=== PATIENT | male | born 1940 | race Caucasian/White ===

== ENCOUNTER 2017-03-19 12:57 | Emergency (ER) | payer MEDICARE, OTHER ==
[2017-03-19 14:01] LABS: HEMOGLOBIN 12.3 gm/dl (14.0-17.5); RED BLOOD COUNT 3.94 M/UL (4.20-5.50); WHITE BLOOD COUNT 8.2 K/UL (4.5-11.0)
[2017-03-19 14:17] LABS: BUN/CREATININE RATIO 24 (0-10)
[2017-06-15] MEDS ORDERED: LIPITOR TAB 2020 MG PO (22:40)
[2017-06-15] MEDS ORDERED: OSMOLITE 1.21000 ML PO (22:40)
[2017-06-15] MEDS ORDERED: COREG 12.5MG12.5 MG PO (22:40)
[2017-06-15] MEDS ORDERED: ASPIR 8181 MG PO (22:41)
[2017-06-15] MEDS ORDERED: CELEXA20 MG PO (22:42)
[2017-06-15] MEDS ORDERED: CARDURA 2MG TAB2 MG PO (22:42)
[2017-06-15] MEDS ORDERED: QUETIAPINE FUMA25 MG PO (22:43)
[2017-06-15] MEDS ORDERED: LISINOPRIL40 MG PO (22:43)
[2017-06-20] MEDS ORDERED: MIRALAX PACK 171 PKT GT (16:00)
[2017-06-20] MEDS ORDERED: COLACE SOL100 MG/10 GT (16:01)
[2017-06-20] MEDS ORDERED: BACTRIM DS TAB1 EACH PO (16:02)
== END 2017-03-19 15:38 | disposition short-term general hospital (02) ==
LOC: ER1 12:57
PROVIDERS: Specialist/Technologist Athletic Trainer
DX: I63.9 Cerebral infarction, unspecified (principal); R60.0 Localized edema; E88.09 Other disorders of plasma-protein metabolism, not elsewhere classified; I25.10 Atherosclerotic heart disease of native coronary artery without angina pectoris; I10 Essential (primary) hypertension; J44.9 Chronic obstructive pulmonary disease, unspecified; Z79.82 Long term (current) use of aspirin; Z79.899 Other long term (current) drug therapy
CPT/HCPCS: 36415; 36600; 70450; 71010; 80053; 82140; 82550; 82553; 82803; 83605; 83880; 84484; 85025; 93005; 96374; 99285; J2930

== ENCOUNTER 2017-03-24 14:14 | Emergency (ER) | payer MEDICARE, OTHER ==
[2017-06-15] MEDS ORDERED: LIPITOR TAB 2020 MG PO (22:40)
[2017-06-15] MEDS ORDERED: OSMOLITE 1.21000 ML PO (22:40)
[2017-06-15] MEDS ORDERED: COREG 12.5MG12.5 MG PO (22:40)
[2017-06-15] MEDS ORDERED: ASPIR 8181 MG PO (22:41)
[2017-06-15] MEDS ORDERED: CELEXA20 MG PO (22:42)
[2017-06-15] MEDS ORDERED: CARDURA 2MG TAB2 MG PO (22:42)
[2017-06-15] MEDS ORDERED: QUETIAPINE FUMA25 MG PO (22:43)
[2017-06-15] MEDS ORDERED: LISINOPRIL40 MG PO (22:43)
[2017-06-20] MEDS ORDERED: MIRALAX PACK 171 PKT GT (16:00)
[2017-06-20] MEDS ORDERED: COLACE SOL100 MG/10 GT (16:01)
[2017-06-20] MEDS ORDERED: BACTRIM DS TAB1 EACH PO (16:02)
== END 2017-03-24 17:00 | disposition home or self-care (01) ==
LOC: ER1 14:14
DX: Z43.1 Encounter for attention to gastrostomy (principal); I25.10 Atherosclerotic heart disease of native coronary artery without angina pectoris; I10 Essential (primary) hypertension; J44.9 Chronic obstructive pulmonary disease, unspecified
CPT/HCPCS: 74000; 99284; Q9963

== ENCOUNTER 2017-03-26 12:06 | Emergency (ER) | payer MEDICARE ==
[2017-03-26 12:22] LABS: HEMOGLOBIN 12.5 gm/dl (14.0-17.5); RED BLOOD COUNT 4.01 M/UL (4.20-5.50); WHITE BLOOD COUNT 8.1 K/UL (4.5-11.0)
[2017-03-26 12:48] LABS: BUN/CREATININE RATIO 19 (0-10)
[2017-06-15] MEDS ORDERED: LIPITOR TAB 2020 MG PO (22:40)
[2017-06-15] MEDS ORDERED: OSMOLITE 1.21000 ML PO (22:40)
[2017-06-15] MEDS ORDERED: COREG 12.5MG12.5 MG PO (22:40)
[2017-06-15] MEDS ORDERED: ASPIR 8181 MG PO (22:41)
[2017-06-15] MEDS ORDERED: CARDURA 2MG TAB2 MG PO (22:42)
[2017-06-15] MEDS ORDERED: CELEXA20 MG PO (22:42)
[2017-06-15] MEDS ORDERED: QUETIAPINE FUMA25 MG PO (22:43)
[2017-06-15] MEDS ORDERED: LISINOPRIL40 MG PO (22:43)
[2017-06-20] MEDS ORDERED: MIRALAX PACK 171 PKT GT (16:00)
[2017-06-20] MEDS ORDERED: COLACE SOL100 MG/10 GT (16:01)
[2017-06-20] MEDS ORDERED: BACTRIM DS TAB1 EACH PO (16:02)
== END 2017-03-26 16:55 ==
LOC: ER1 12:06
PROVIDERS: Emergency Medicine
DX: R51 Headache (principal); E78.5 Hyperlipidemia, unspecified; J44.9 Chronic obstructive pulmonary disease, unspecified; J45.909 Unspecified asthma, uncomplicated; I10 Essential (primary) hypertension; H02.402 Unspecified ptosis of left eyelid; G81.94 Hemiplegia, unspecified affecting left nondominant side; Z86.73 Personal history of transient ischemic attack (TIA), and cerebral infarction without residual deficits
CPT/HCPCS: 36415; 70450; 71010; 80053; 82550; 82553; 83874; 84484; 85025; 85610; 85730; 93005; 99284

== ENCOUNTER → 2017-04-25 | Outpatient (CLI) | payer MEDICARE, OTHER ==
[~2017-04-25] MED LIST: ASPIR 8181 MG PO; BACTRIM DS TAB1 EACH PO; CARDURA 2MG TAB2 MG PO; CELEXA20 MG PO; COLACE SOL100 MG/10 GT; COREG 12.5MG12.5 MG PO; LIPITOR TAB 2020 MG PO; LISINOPRIL40 MG PO; MIRALAX PACK 171 PKT GT; OSMOLITE 1.21000 ML PO; QUETIAPINE FUMA25 MG PO
== END ==
LOC: RAD 09:00
DX: R13.10 Dysphagia, unspecified (principal)
CPT/HCPCS: 74230; 92611-GN

== ENCOUNTER 2017-08-09 12:17 | Emergency (ER) | payer MEDICARE, OTHER ==
[2017-08-09 14:59] LABS: HEMOGLOBIN 10.5 gm/dl (14.0-17.5); RED BLOOD COUNT 3.45 M/UL (4.20-5.50); WHITE BLOOD COUNT 9.2 K/UL (4.5-11.0)
[2017-08-09 15:23] LABS: BUN/CREATININE RATIO 35 (0-10)
== END 2017-08-09 21:40 | disposition home or self-care (01) ==
LOC: ER1 12:17
PROVIDERS: Family Medicine
DX: J06.9 Acute upper respiratory infection, unspecified (principal); N28.9 Disorder of kidney and ureter, unspecified; N30.90 Cystitis, unspecified without hematuria; Z86.73 Personal history of transient ischemic attack (TIA), and cerebral infarction without residual deficits; Z79.82 Long term (current) use of aspirin; Z79.899 Other long term (current) drug therapy
CPT/HCPCS: 51702; 71010; 80053; 81001; 82550; 82553; 83605; 83874; 83880; 84484; 85025; 87040; 87077; 87086; 87186; 93005; 96374; 99284; J0696; J7040; J7050